=== PATIENT | female | born 1945 | race Caucasian/White ===

== ENCOUNTER 2017-02-02 13:06 | Emergency (ER) | payer OTHER ==
[~2017-02-02] VITALS: Ht 165.1 cm; Wt 85.5 kg
[~2017-02-02 13:06] MED LIST: BENADRYL25 MG PO; CILOSTAZOL100 MG PO; CLARITIN,ALAVAR10 MG PO; CRESTOR40 MG PO; LEXAPRO10 MG PO; LORATADINE10 M2 PO; PREDNISONE50 MG PO; TOPROL XL25 MG PO; TYLENOL PM1 CAPLET PO; WARFARIN SODIU2.5 MG PO; WARFARIN SODIUM2 MG PO; WARFARIN SODIUM5 MG PO
[2017-02-02] MEDS ORDERED: PREDNISONE20 MG PO (13:41)
[2017-02-02] MEDS ORDERED: ATARAX,VISTARIL50 MG PO (13:41)
[2017-02-02] MEDS ORDERED: PEPCID20 MG PO (13:41)
[2017-02-02 14:32] VITALS: BP 121/81
== END 2017-02-02 14:33 | disposition home or self-care (01) ==
LOC: EME 13:06
DX: L50.9 Urticaria, unspecified (principal); Z79.01 Long term (current) use of anticoagulants
CPT/HCPCS: 99281; 99284; J7512

== ENCOUNTER 2018-05-18 14:41 | Observation (INO) | payer OTHER ==
[~2018-05-18] VITALS: Ht 165.1 cm; Wt 86.0 kg
[~2018-05-18 14:41] MED LIST changes: +ATARAX,VISTARIL50 MG PO; +COUMADIN2.5 MG PO; +PEPCID20 MG PO; +PREDNISONE20 MG PO; +TYLENOL PM EX-1 EACH PO; -TYLENOL PM1 CAPLET PO; -WARFARIN SODIUM2 MG PO; -WARFARIN SODIUM5 MG PO
[2018-05-18 17:36] LABS: APPEARANCE CLEAR ((CLEAR)); BILIRUBIN NEGATIVE; BLOOD SMALL; COLOR STRAW ((YELLOW)); GLUCOSE (STRIP) NEGATIVE; KETONES NEGATIVE; LEUKOCYTES LARGE; NITRITE NEGATIVE; PROTEIN (STRIP) NEGATIVE; SPECIFIC GRAVITY 1.006 (1.000-1.030); UROBILINOGEN 0.2 MG/DL (0.2-1.0)
[2018-05-18 17:50] LABS: BACTERIA RARE /HPF; EPITHELIAL CELLS 1+ /HPF; MUCUS NONE SEEN /LPF; RED BLOOD CELLS 0-5 /HPF (0-5); UCUL ADDED? YES
[2018-05-18 18:05] LABS: HEMATOCRIT 38.7 % (36.0-46.0); MCH 31.6 PG (29.0-34.0); MCHC 33.6 G/DL (30.0-36.0); MCV 93.9 FL (83-99); PLATELET COUNT 294 K/uL (156-360); RBC DIS.WIDTH-CV 13.5 % (11.8-14.6); RBC DIS.WIDTH-SD 46.9 % (39-53); RED BLOOD COUNT 4.12 M/uL (3.80-5.20); WHITE BLOOD COUNT 10.5 K/uL (4.1-10.2)
[2018-05-18 18:16] LABS: ALBUMIN 4.2 g/dL (3.2-4.8)
[2018-05-18 18:17] LABS: CHLORIDE 107 mEq/L (99-109); POTASSIUM 4.4 mEq/L (3.7-5.4); SODIUM 142 mEq/L (136-147)
[2018-05-18 18:19] LABS: GLUCOSE 101 mg/dL (70-99); TOTAL PROTEIN 7.1 g/dL (6.4-8.3)
[2018-05-18 18:21] LABS: TOTAL BILIRUBIN 0.3 mg/dL (0.0-1.0)
[2018-05-18 18:22] LABS: ALKALINE PHOSPHATASE 90 IU/L (3-129)
[2018-05-18 18:23] LABS: CREATININE 0.8 mg/dL (0.6-1.3); GFR ESTIMATE (CALCULATED) > 59 mL/min/
[2018-05-18 18:24] LABS: AST (GOT) 16 IU/L (2-34); UREA NITROGEN (BUN) 11 mg/dL (9-23)
[2018-05-18 18:25] LABS: ALT (GPT) 12 IU/L (3-49)
[2018-05-18 18:28] LABS: TROP-I INTERPRETATION NEGATIVE; TROPONIN-I < 0.01 ng/mL (0.0-0.30)
[2018-05-18] MEDS ORDERED: BENADRYL ALLERG25 MG PO (19:06)
[2018-05-18] MEDS ORDERED: BENADRYL ITCH28.3 GM TP (19:06)
[2018-05-18 21:51] VITALS: BP 210/81
[2018-05-18 23:58] VITALS: BP 169/72
[2018-05-19 03:57] VITALS: BP 138/65
[2018-05-19 06:55] LABS: TROP-I INTERPRETATION NEGATIVE; TROPONIN-I < 0.01 ng/mL (0.0-0.30)
[2018-05-19 08:20] VITALS: BP 115/56
[2018-05-19 10:17] LABS: INTER. NORMALIZED RATIO 1.1
[2018-05-19 11:55] VITALS: BP 121/81
[2018-05-19] MEDS ORDERED: LOVENOX80 MG/0.8 SC (16:09)
== END 2018-05-19 16:55 | disposition home or self-care (01) ==
LOC: EME 14:41 → RME 14:41 → EDOF 19:08 → 4SOUTH 19:08 → EDOF 19:08 → ENRESERV 19:31 → 4SOUTH 21:22
PROVIDERS: Internal Medicine; Physician Assistant; Physician Assistant Medical
PROC: B246ZZZ Ultrasonography of Right and Left Heart (ICD-10-PCS; principal; 2018-05-19)
DX: R55 Syncope and collapse (principal); E78.5 Hyperlipidemia, unspecified; I10 Essential (primary) hypertension; M19.90 Unspecified osteoarthritis, unspecified site; I08.3 Combined rheumatic disorders of mitral, aortic and tricuspid valves; K51.90 Ulcerative colitis, unspecified, without complications; D68.59 Other primary thrombophilia; Z79.01 Long term (current) use of anticoagulants; I73.9 Peripheral vascular disease, unspecified; Z87.891 Personal history of nicotine dependence; M79.671 Pain in right foot; M25.562 Pain in left knee; E66.3 Overweight; Z68.31 Body mass index [BMI] 31.0-31.9, adult; S99.921A Unspecified injury of right foot, initial encounter; S69.92XA Unspecified injury of left wrist, hand and finger(s), initial encounter; I27.20 Pulmonary hypertension, unspecified; W01.0XXA Fall on same level from slipping, tripping and stumbling without subsequent striking against object, initial encounter; Z88.2 Allergy status to sulfonamides
CPT/HCPCS: 70450; 71046; 72125; 73130; 73564; 73630; 73700; 80053; 81003; 84484; 85027; 85610; 85730; 87077; 87086; 87186; 87641; 93005; 93306; 99281; 99285; G0378; J1200; J1650